=== PATIENT | male | born 1975 | race Caucasian/White ===

== ENCOUNTER 2016-12-12 08:40 | Emergency (ER) | payer SELFPAY ==
[~2016-12-12] VITALS: Ht 182.9 cm; Wt 80.5 kg
[~2016-12-12 08:40] MED LIST: OXYCTAB PO; Z.0.NO CURRENT MEDS
[2016-12-12 08:54] VITALS: BP 145/111; PULSE 111; RESP 16; TEMP 98.6; O2SAT 100
[2016-12-12] MEDS ORDERED: ONDANSETRON HCL 4 MG/2 ML VIAL IV PUSH ONE (09:15)
[2016-12-12] MEDS ORDERED: SODIUM CHLORIDE 0.9% FLUSH 5 ML FLUSH IVF PRN (09:15)
[2016-12-12] MEDS ORDERED: MORPHINE SULFATE 4 MG/ML INJ IV PUSH ONE (09:15)
--- NOTE | 2016-12-12 09:36 | PD ---
HPI Chief Complaint: GI Complaint Time Seen by Provider: 09:03 Travel History International Travel<30 days: No Contact w/Intl Traveler<30days: No Traveled to known affect area: No History of Present Illness HPI 41-year-old male presents with rectal pain and rectal bleeding after he had a slip and fall out of the shower a couple days ago. He states it occurred on Sunday. Pain is sharp. Severity is moderate. Pain is worse with movement or if you touch the area. He states that he's never had issues with bleeding before. He states he's never had history of hemorrhoids that he is aware of. He states he didn't think he hit his head or blacked out that he is aware of and denies other areas of pain or complaint. Quality is bright red. Severity is with bowel movements and he keeps a tissue in that area intermittently PFSH Past Medical History Medical History: Denies Significant Hx Diminished Hearing: No Tetanus Vaccination: Unknown Influenza Vaccination: No Past Surgical History Surgical History: No Previous Surgery Social History Alcohol Use: Yes (couple beers "DAILY") Tobacco Use: Yes (3/4 PPD) Substance Use: No Allergies-Medications (Allergen,Severity, Reaction): Coded Allergies: Tylenol (Verified Adverse Reaction, Intermediate, STOMACH PROBLEMS, ) Reported Meds & Prescriptions Reported Meds & Active Scripts Active Anusol-Hc Rectal (Hydrocortisone Rectal) 2.5% Cream 1 Applic RECTAL Q6H PRN Review of Systems Except as stated in HPI: all other systems reviewed are Neg Physical Exam Narrative GENERAL: Well-nourished, well-developed patient. Well-appearing SKIN: Warm and dry. HEAD: Normocephalic and atraumatic. EYES: No injection or drainage. ENT: No nasal drainage noted. NECK: Supple, trachea midline. Nontender in midline CARDIOVASCULAR: Regular rate and rhythm RESPIRATORY: Breath sounds equal bilaterally. No accessory muscle use. GASTROINTESTINAL: Abdomen soft, mild tenderness diffusely, nondistended. EXTREMITIES: No edema. No pain over main joints RECTAL EXAM: Performed with steam room attendant and after permission. Large external hemorrhoids noted with brown stool with bright red blood on inspection BACK: No obvious deformity In midline, tenderness over coccyx NEUROLOGICAL: Awake and alert. Motor and sensory grossly within normal limits. Normal speech. Data Data Last Documented VS Vital Signs Date Time Temp Pulse Resp B/P Pulse Ox O2 Delivery O2 Flow Rate FiO2 12/12/16 11:41 85 16 132/93 100 12/12/16 09:56 Room Air 12/12/16 08:54 98.6 Orders Complete Blood Count With Diff (12/12/16 09:12) Basic Metabolic Panel (Bmp) (12/12/16 09:12) Ct Abd/Pel W Iv Contrast(Rout) (12/12/16 ) Iv Access Insert/Monitor (12/12/16 09:12) Morphine Inj (Morphine Inj) (12/12/16 09:15) Ondansetron Inj (Zofran Inj) (12/12/16 09:15) Prothrombin Time / Inr (Pt) (12/12/16 09:12) Act Partial Throm Time (Ptt) (12/12/16 09:12) Type And Screen (12/12/16 09:12) Ecg Monitoring (12/12/16 09:12) Oximetry (12/12/16 09:12) Sodium Chloride 0.9% Flush (Ns Flush) (12/12/16 09:15) Iohexol 350 Inj (Omnipaque 350 Inj) (12/12/16 10:59) Labs Laboratory Tests Test 12/12/16 09:50 White Blood Count 6.6 TH/MM3 Red Blood Count 4.76 MIL/MM3 Hemoglobin 15.1 GM/DL Hematocrit 43.4 % Mean Corpuscular Volume 91.1 FL Mean Corpuscular Hemoglobin 31.6 PG Mean Corpuscular Hemoglobin 34.7 % Concent Red Cell Distribution Width 12.7 % Platelet Count 213 TH/MM3 Mean Platelet Volume 8.4 FL Neutrophils (%) (Auto) 78.4 % Lymphocytes (%) (Auto) 11.5 % Monocytes (%) (Auto) 8.4 % Eosinophils (%) (Auto) 1.3 % Basophils (%) (Auto) 0.4 % Neutrophils # (Auto) 5.1 TH/MM3 Lymphocytes # (Auto) 0.8 TH/MM3 Monocytes # (Auto) 0.6 TH/MM3 Eosinophils # (Auto) 0.1 TH/MM3 Basophils # (Auto) 0.0 TH/MM3 CBC Comment DIFF FINAL Differential Comment Prothrombin Time 10.5 SEC Prothromb Time International 1.0 RATIO Ratio Activated Partial 27.2 SEC Thromboplast Time Sodium Level 140 MEQ/L Potassium Level 3.5 MEQ/L Chloride Level 104 MEQ/L Carbon Dioxide Level 26.1 MEQ/L Anion Gap 10 MEQ/L Blood Urea Nitrogen 8 MG/DL Creatinine 0.90 MG/DL Estimat Glomerular Filtration 93 ML/MIN Rate Random Glucose 112 MG/DL Calcium Level 8.9 MG/DL Blood Type O NEGATIVE Antibody Screen NEGATIVE Blood Bank Comment MDM Medical Decision Making Medical Screen Exam Complete: Yes Emergency Medical Condition: Yes Medical Record Reviewed: Yes (past history confirmed) Interpretation(s) CBC & BMP Diagram 12/12/16 09:50 Last 24 hours Impressions Abdomen/Pelvis CT 12/12/16 0000 Signed Impressions: Service Date/Time: Monday, December 12, 2016 10:53 - CONCLUSION: 1. Fatty infiltration of the liver. 2. Mild diffuse enlargement of the prostate gland measuring 4.9 cm. 3. No acute intra-abdominal or pelvic pathology. Oumar Rivera MD Differential Diagnosis Hemorrhoid, fissure, anemia, fracture, strain Narrative Course Will check blood work, CT imaging and dose with morphine and reevaluate ed workup without emergent process, Patient denies any new complaints and states that they are feeling better. Patient happy with care, all questions answered. Patient knows that follow up is incumbent on them and to return to the emergency room immediately if new or worsening symptoms develop. Patient given strict return precautions, vitals reviewed and are normal, agrees to further workup as an outpatient. [facility] Point of Care Internal Pos. & Neg. Controls: Passed Fecal Specimen Occult Blood: Positive Diagnosis Primary Impression: External hemorrhoid Additional Impressions: Rectal bleed Coccygeal pain, acute Patient Instructions: General Instructions, Hemorrhoids (ED) Additional Instructions: use cushion when sitting, tylenol as needed, set up a gi specialist this week, sitz baths as needed Med/Other Pt SpecificInfo: Prescription(s) given Scripts Hydrocortisone Rectal (Anusol-Hc Rectal)2.5% Cream1 Applic RECTAL Q6H PRN ( ITCHING/INFLAMMATION) #10 GM Ref 0 Prov:Tita Frederick MD 12/12/16 Disposition: 01 DISCHARGE HOME Condition: Stable Tita Frederick MD Dec 12, 2016 09:36
[2016-12-12 09:56] VITALS: BP 118/84; PULSE 96; RESP 16; O2SAT 100
[2016-12-12 09:58] VITALS: RESP 16
[2016-12-12 10:08] LABS: AUTOMATED NEUTROPHIL # 5.1 TH/MM3 (1.8-7.7); BASOPHIL % 0.4 % (0.0-2.0); EOSINOPHIL # 0.1 TH/MM3 (0-0.4); EOSINOPHIL % 1.3 % (0.0-4.0); HEMATOCRIT 43.4 % (39.0-51.0); HEMO FLAGS DIFF FINAL; LYMPH % 11.5 % (9.0-44.0); LYMPHOCYTE # 0.8 TH/MM3 (1.0-4.8); MEAN CELL VOLUME 91.1 FL (80.0-100.0); MEAN CORPUSCULAR HEMOGLOBIN 31.6 PG (27.0-34.0); MEAN CORPUSCULAR HGB CONC 34.7 % (32.0-36.0); MONO % 8.4 % (0.0-8.0); NEUT % 78.4 % (16.0-70.0); PLATELET COUNT 213 TH/MM3 (150-450); RED BLOOD COUNT 4.76 MIL/MM3 (4.50-5.90); RED CELL DISTRIBUTION WIDTH 12.7 % (11.6-17.2); WHITE BLOOD COUNT 6.6 TH/MM3 (4.0-11.0)
[2016-12-12 10:16] LABS: POTASSIUM 3.5 MEQ/L (3.5-5.1)
[2016-12-12 10:20] LABS: APTT (PATIENT) 27.2 SEC (24.3-30.1); PROTHROMBIN TIME - PATIENT 10.5 SEC (9.8-11.6)
[2016-12-12 10:27] LABS: BICARBONATE 26.1 MEQ/L (21.0-32.0)
[2016-12-12] MEDS ORDERED: IOHEXOL 350 MG/ML 10 ML VIAL (for RAD DIAG) IV ONE (10:59)
--- NOTE | 2016-12-12 11:12 | RADHPO ---
EXAM DATE/TIME: 12/12/2016 10:53 [facility] COMPARISON: No previous studies available for comparison. INDICATIONS : Fell three days ago. Lower back pain with blood in stool. IV CONTRAST: 95 cc Omnipaque 350 (iohexol) IV ORAL CONTRAST: No oral contrast ingested. RADIATION DOSE: 9.65 CTDIvol (mGy) MEDICAL HISTORY : None SURGICAL HISTORY : Orthopedic surgery. ENCOUNTER: Initial ACUITY: 3 days PAIN SCALE: 8/10 LOCATION: lower quadrant TECHNIQUE: Volumetric scanning of the abdomen and pelvis was performed. Using automated exposure control and ad justment of the mA and/or kV according to patient size, radiation dose was kept as low as reasonably achievable to obtain optimal diagnostic quality images. FINDINGS: LOWER LUNGS: The visualized lower lungs are clear. LIVER: Homogeneous density without lesion. There is no dilation of the biliary tree. No calcified gallston es. There is some fatty infiltration throughout the liver. SPLEEN: Normal size without lesion. PANCREAS: Within normal limits. KIDNEYS: Normal in size and shape. There is no mass, stone or hydronephrosis. ADRENAL GLANDS: Within normal limits. VASCULAR: There is no aortic aneurysm. BOWEL/MESENTERY: The stomach, small bowel, and colon demonstrate no acute abnormality. There is no free intraperitone al air or fluid. A few scattered diverticula are noted along the colon. No inflammatory changes are s een. ABDOMINAL WALL: Within normal limits. RETROPERITONEUM: There is no lymphadenopathy. BLADDER: No wall thickening or mass. REPRODUCTIVE: The prostate gland measures 4.9 cm. INGUINAL: There is no lymphadenopathy or hernia. MUSCULOSKELETAL: Within normal limits for patient age. No acute bony fracture. There is some chronic sclerosis of the SI joints bilaterally. CONCLUSION: 1. Fatty infiltration of the liver. 2. Mild diffuse enlargement of the prostate gland measuring 4.9 cm. 3. No acute intra-abdominal or pelvic pathology. Oumar Rivera MD on December 12, 2016 at 11:08 Board Certified Radiologist. This report was verified electronically.
[2016-12-12] MEDS ORDERED: HYDR2.5%T RECTAL (11:19)
[2016-12-12 11:41] VITALS: BP 132/93
== END 2016-12-12 11:51 | disposition home or self-care (01) ==
LOC: PHED 08:40
DX: K64.4 Residual hemorrhoidal skin tags (principal); K62.5 Hemorrhage of anus and rectum; M53.3 Sacrococcygeal disorders, not elsewhere classified; F17.210 Nicotine dependence, cigarettes, uncomplicated; F10.10 Alcohol abuse, uncomplicated; W01.0XXA Fall on same level from slipping, tripping and stumbling without subsequent striking against object, initial encounter; Y92.89 Other specified places as the place of occurrence of the external cause; Y93.9 Activity, unspecified
CPT/HCPCS: 74177; 80048; 85025; 85610; 85730; 86850; 86900; 86901; 96374; 96375; 99284; J2270; J2405; Q9967

== ENCOUNTER 2017-12-23 12:27 | Emergency (ER) | payer SELFPAY ==
[~2017-12-23] VITALS: Ht 182.9 cm; Wt 76.0 kg
[~2017-12-23 12:27] MED LIST changes: +HYDR2.5%T RECTAL; -OXYCTAB PO; -Z.0.NO CURRENT MEDS
[2017-12-23 12:38] VITALS: BP 151/99; PULSE 102; RESP 16; TEMP 98.3; O2SAT 98
[2017-12-23] MEDS ORDERED: SODIUM CHLOR 0.9% 1000 ML INJ 1,000 ML IV ONE (13:31)
[2017-12-23] MEDS ORDERED: HYDROmorphone HCL PF 2 MG/ML VIAL IV ONE ×2 (13:45)
[2017-12-23] MEDS ORDERED: SODIUM CHLORIDE 0.9% FLUSH 10 ML FLUSH IVF PRN (13:45)
[2017-12-23] MEDS ORDERED: HYDROmorphone HCL PF 1 MG/ML VIAL IVS ONE (13:45)
[2017-12-23] MEDS ORDERED: ONDANSETRON HCL 4 MG/2 ML VIAL IVP ONE (13:45)
[2017-12-23 13:47] LABS: AUTOMATED NEUTROPHIL # 4.1 TH/MM3 (1.8-7.7); BASOPHIL # 0.1 TH/MM3 (0-0.2); EOSINOPHIL # 0.1 TH/MM3 (0-0.4); EOSINOPHIL % 1.3 % (0.0-4.0); HEMATOCRIT 46.3 % (39.0-51.0); HEMOGLOBIN 15.8 GM/DL (13.0-17.0); LYMPH % 16.8 % (9.0-44.0); MEAN CELL VOLUME 95.7 FL (80.0-100.0); MEAN CORPUSCULAR HEMOGLOBIN 32.5 PG (27.0-34.0); MEAN PLATELET VOLUME 8.2 FL (7.0-11.0); MONO % 9.2 % (0.0-8.0); MONOCYTE # 0.5 TH/MM3 (0-0.9); NEUT % 71.7 % (16.0-70.0); PLATELET COUNT 179 TH/MM3 (150-450); RED BLOOD COUNT 4.84 MIL/MM3 (4.50-5.90); RED CELL DISTRIBUTION WIDTH 13.3 % (11.6-17.2); WHITE BLOOD COUNT 5.8 TH/MM3 (4.0-11.0)
--- NOTE | 2017-12-23 13:49 | PD ---
HPI Chief Complaint: Headache Time Seen by Provider: 13:31 Travel History International Travel<30 days: No Contact w/Intl Traveler<30days: No Traveled to known affect area: No History of Present Illness HPI Patient presents with complaints of right sided headache. Reports a history of migraines. Positive photophobia. Mild aura. Denies vomiting. Mild nausea. States he gets 2 or 3 migraines a week that resolved after an hour. States he normally does not go to the emergency room. Additionally has concerns of a anterior chest pain that can occur at any point in time the last 2 or 3 seconds. Exercises regularly. Unable to recall last CT of the brain. PFSH Past Medical History Diminished Hearing: No Influenza Vaccination: No Social History Alcohol Use: Yes (couple beers "DAILY") Tobacco Use: Yes (3/ PPD) Substance Use: No Allergies-Medications (Allergen,Severity, Reaction): Coded Allergies: acetaminophen (Unverified Adverse Reaction, Intermediate, STOMACH PROBLEMS , 12/23/17) Reported Meds & Prescriptions Reported Meds & Active Scripts Active Review of Systems General / Constitutional: No: Fever Eyes: No: Visual changes HENT: Positive: Headaches Cardiovascular: Positive: Chest Pain or Discomfort Respiratory: No: Shortness of Breath Gastrointestinal: No: Abdominal Pain Genitourinary: No: Dysuria Musculoskeletal: No: Pain Skin: No Rash Neurologic: No: Weakness Psychiatric: No: Depression Endocrine: No: Polydipsia Hematologic/Lymphatic: No: Easy Bruising Physical Exam Narrative GENERAL: Well-nourished, well-developed patient. SKIN: Focused skin assessment warm/dry. HEAD: Normocephalic. EYES: No scleral icterus. No injection or drainage. NECK: Supple, trachea midline. No JVD or lymphadenopathy. CARDIOVASCULAR: Regular rate and rhythm without murmurs, gallops, or rubs. RESPIRATORY: Breath sounds equal bilaterally. No accessory muscle use. GASTROINTESTINAL: Abdomen soft, non-tender, nondistended. MUSCULOSKELETAL: No cyanosis, or edema. BACK: Nontender without obvious deformity. No CVA tenderness. Data Data Last Documented VS Vital Signs Date Time Temp Pulse Resp B/P (MAP) Pulse Ox O2 Delivery O2 Flow Rate FiO2 12/23/17 12:38 98.3 102 16 151/99 (116) 98 Orders Orders Complete Blood Count With Diff (12/23/17 13:31) Comprehensive Metabolic Panel (12/23/17 13:31) Ct Brain W/O Iv Contrast(Rout) (12/23/17 13:31) Ecg Monitoring (12/23/17 13:31) Iv Access Insert/Monitor (12/23/17 13:31) Oximetry (12/23/17 13:31) Sodium Chloride 0.9% Flush (Ns Flush) (12/23/17 13:45) Ondansetron Inj (Zofran Inj) (12/23/17 13:45) Hydromorphone Pf Inj (Dilaudid Pf Inj) (12/23/17 13:45) Sodium Chlor 0.9% 1000 Ml Inj (Ns 1000 M (12/23/17 13:31) Ckmb (Isoenzyme) Profile (12/23/17 13:31) Troponin I (12/23/17 13:31) Electrocardiogram (12/23/17 ) Hydromorphone Pf Inj (Dilaudid Pf Inj) (12/23/17 13:45) Labs Laboratory Tests Test 12/23/17 13:30 White Blood Count 5.8 TH/MM3 Red Blood Count 4.84 MIL/MM3 Hemoglobin 15.8 GM/DL Hematocrit 46.3 % Mean Corpuscular Volume 95.7 FL Mean Corpuscular Hemoglobin 32.5 PG Mean Corpuscular Hemoglobin Concent 34.0 % Red Cell Distribution Width 13.3 % Platelet Count 179 TH/MM3 Mean Platelet Volume 8.2 FL Neutrophils (%) (Auto) 71.7 % Lymphocytes (%) (Auto) 16.8 % Monocytes (%) (Auto) 9.2 % Eosinophils (%) (Auto) 1.3 % Basophils (%) (Auto) 1.0 % Neutrophils # (Auto) 4.1 TH/MM3 Lymphocytes # (Auto) 1.0 TH/MM3 Monocytes # (Auto) 0.5 TH/MM3 Eosinophils # (Auto) 0.1 TH/MM3 Basophils # (Auto) 0.1 TH/MM3 CBC Comment DIFF FINAL Differential Comment Blood Urea Nitrogen 5 MG/DL Creatinine 0.60 MG/DL Random Glucose 99 MG/DL Total Protein 7.2 GM/DL Albumin 3.8 GM/DL Calcium Level 8.5 MG/DL Alkaline Phosphatase 104 U/L Aspartate Amino Transf (AST/SGOT) 159 U/L Alanine Aminotransferase (ALT/SGPT) 60 U/L Total Bilirubin 0.8 MG/DL Sodium Level 137 MEQ/L Potassium Level 3.1 MEQ/L Chloride Level 100 MEQ/L Carbon Dioxide Level 25.1 MEQ/L Anion Gap 12 MEQ/L Estimat Glomerular Filtration Rate 148 ML/MIN Total Creatine Kinase 72 U/L Troponin I LESS THAN 0.02 NG/ML MDM Medical Decision Making Medical Screen Exam Complete: Yes Emergency Medical Condition: Yes Differential Diagnosis Migraine, acute coronary syndrome, dehydration, tension headache Narrative Course Assessment plan discussed with patient at bedside. Patient received medication with resolution of headache. Labs within normal limits. Last [address] 12/23/17 1331 Signed Impressions: Service Date/Time: Saturday, December 23, 2017 13:54 - CONCLUSION: Mild mucoperiosteal thickening right maxillary sinus. Otherwise negative with no abnormal intracranial process Nikhil Michele MD Diagnosis Primary Impression: Migraine Qualified Codes: G43.109 - Migraine with aura, not intractable, without status migrainosus Patient Instructions: General Instructions Additional Instructions: Rest fluids and Motrin, encouraged to return to emergency with any onset of new symptoms, follow-up with PCP, consider [id number] antihistamine without pseudoephedrine for allergies Med/Other Pt SpecificInfo: No Meds Exist/No RX given Disposition: 01 DISCHARGE HOME Condition: Good Kurtis Easton MD Dec 23, 2017 13:49
[2017-12-23 13:56] LABS: CHLORIDE 100 MEQ/L (98-107); SODIUM (NA) 137 MEQ/L (136-145)
[2017-12-23 14:00] LABS: ALBUMIN 3.8 GM/DL (3.4-5.0); BICARBONATE 25.1 MEQ/L (21.0-32.0); BLOOD UREA NITROGEN 5 MG/DL (7-18); CALCIUM 8.5 MG/DL (8.5-10.1); GLUCOSE,RANDOM 99 MG/DL (74-106)
[2017-12-23 14:03] LABS: ALT (GPT) 60 U/L (12-78); AST (GOT) 159 U/L (15-37); GLOMERULAR FILTRATION RATE 148 ML/MIN (>89)
[2017-12-23 14:05] LABS: TOTAL BILIRUBIN ADULT 0.8 MG/DL (0.2-1.0); TOTAL PROTEIN 7.2 GM/DL (6.4-8.2)
[2017-12-23 14:06] LABS: ALKALINE PHOSPHATASE 104 U/L (45-117)
[2017-12-23 14:08] LABS: TROPONIN I LESS THAN 0.02 NG/ML (0.02-0.05)
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
[2017-12-23 15:18] VITALS: BP 118/78; PULSE 86; RESP 18; O2SAT 100
--- NOTE | 2017-12-24 10:49 | EKG ---
Date Performed: 12/23/2017 Time Performed: 13:42:53 PTAGE: 42 years EKG: Sinus rhythm MARKED LEFT AXIS DEVIATION INCOMPLETE RIGHT BUNDLE BRANCH BLOCK NONSPECIFIC ST ELEVATION ABNORMAL EC G NO PREVIOUS TRACING DOCTOR: Scooby Doe Interpretating Date/Time 12/24/2017 10:48:59
== END 2017-12-23 15:24 | disposition home or self-care (01) ==
LOC: PHEFT 12:27 → PHED 15:24
DX: G43.109 Migraine with aura, not intractable, without status migrainosus (principal); R07.9 Chest pain, unspecified; F17.210 Nicotine dependence, cigarettes, uncomplicated; R94.31 Abnormal electrocardiogram [ECG] [EKG]
CPT/HCPCS: 70450; 80053; 82550; 84484; 85025; 93005; 96361; 96374; 96375; 99285; J1170; J2405; J7030